=== PATIENT | female | born 1975 | race African-American/Black ===

== ENCOUNTER 2021-05-25 08:43 | Emergency (ER) | payer OTHER ==
[~2021-05-25] VITALS: Ht 157.5 cm; Wt 83.0 kg
[2021-05-25 08:50] VITALS: BP 119/63
== END 2021-05-25 10:02 | disposition home or self-care (01) ==
LOC: M.ERS 08:43
DX: B34.9 Viral infection, unspecified (principal); Z20.822 Contact with and (suspected) exposure to COVID-19; F17.210 Nicotine dependence, cigarettes, uncomplicated; Z88.0 Allergy status to penicillin